=== PATIENT | female | born 1980 | race Asian ===

== ENCOUNTER → 2016-11-04 | Outpatient (CLI) | payer OTHER | LOC: WI 11:47 | PROVIDERS: ATTEND Family Medicine | DX: N63 Unspecified lump in breast (principal) | CPT/HCPCS: 76642; G0204; 77066 ==

== ENCOUNTER → 2016-11-14 | Day surgery (SDC) | payer OTHER ==
[~2016-11-14] MED LIST: LIDOCAINE 2% INJ (20 MG/ML) 20 ML MDV ONE
--- NOTE | 2016-11-17 15:46 | WOMENS IMAGING REPORT ---
EXAM DESCRIPTION: U/S BREAST BX; RIGHT DIG DX MAMMO NO CHG; U/S BREAST BX EACH ADDT'L COMPLETED DATE/TIME: 11/14/2016 12:48 pm; 11/14/2016 11:44 am; 11/14/2016 12:49 pm REASON FOR STUDY: N63, BREAST LUMP; N63 S/P RIGHT US BX FOR CLIP PLACEMENT; N63 SECOND BIOPSY SITE N 63 UNSPECIFIED LUMP IN BREAST COMPARISON: None. TECHNIQUE: The procedure was discussed with the patient and the patient agreed to proceed. RIGHT BREAST: The patient was scanned and the area of interest in the 10-11 o'clock position of the right breast wa s localized. This correlates with the area of concern on prior imaging studies. This area was target ed for ultrasound-guided core biopsy. After sterile skin prep and 10 cc local lidocaine 1% for skin and deep tissue anesthesia, a 14 gauge coaxial core biopsy needle was used to obtain several cores of tissue from the lesion. Under ultraso und guidance, a ribbon clip was placed in the areas sampled. There were no immediate post-procedure complications. RIGHT AXILLA: A separate biopsy was performed of the abnormal lymph node in the right axilla. The patient was scan muna and the area of interest in the right axilla was localized. This correlates with the area of con cern on prior imaging studies. This area was targeted for ultrasound-guided core biopsy. After sterile skin prep and 10 cc local lidocaine 1% for skin and deep tissue anesthesia, a 14 gauge coaxial core biopsy needle was used to obtain several cores of tissue from the lesion. Under ultraso und guidance, a marker clip was placed in the areas sampled. There were no immediate post-procedure complications. MAMMOGRAM: Post-procedure two view mammogram was acquired in the digital mammogram suite. The clips w ere in the expected location. No significant hematoma. Pathology yields a diagnosis of invasive ductal carcinoma in the right breast. 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 Pathology is concordant. LIMITATIONS: None. FINDINGS: Ultrasound guided breast biopsy as described above. POST PROCEDURE MAMMOGRAMS FOR MARKER PLACEMENT: Yes IMPRESSION: ULTRASOUND-GUIDED CORE BIOPSY OF THE RIGHT BREAST YIELDS A DIAGNOSIS OF INVASIVE DUCTAL CARCINOMA IN THE RIGHT BREAST AND METASTATIC CARCINOMA IN THE RIGHT AXILLARY NECK NODE. COMMENT: COMMUNICATION: Attempts were made to contact the patient the or unsuccessful. The patient' s provider has been notified of the findings. The provider will discuss the findings with the patient . Patient medication list reviewed: Yes- Quality ID# [id number]:Eligible professional attests to documenting i n the medical record they obtained, updated, or reviewed the patient's current medications. TECHNICAL DOCUMENTATION: JOB ID: [id number] [employer]- All Rights Reserved
== END ==
LOC: WI 14:25
PROVIDERS: ATTEND Family Medicine
PROC: 0HBT3ZX Excision of Right Breast, Percutaneous Approach, Diagnostic (ICD-10-PCS; principal; 2016-11-14)
DX: C50.911 Malignant neoplasm of unspecified site of right female breast (principal); C77.3 Secondary and unspecified malignant neoplasm of axilla and upper limb lymph nodes
CPT/HCPCS: 88342 ×2; 88341 ×2; 88305 ×2; 19083; 19084; J3490

== ENCOUNTER → 2016-12-01 | Outpatient (CLI) | payer OTHER ==
--- NOTE | 2016-12-01 13:44 | RADIOLOGY REPORT (SQ) ---
EXAM DESCRIPTION: NM MUGA REST COMPLETED DATE/TIME: 12/01/2016 1:26 pm REASON FOR STUDY: BREAST CA (C50.411), ENCOUNTER FOR SCREENING FOR CARDIOVASCULAR DISO(Z13.6) C50.41 1 MALIG NEOPLM OF UPPER-OUTER QUADRANT OF RIGHT FEMALE Z13.6 ENCOUNTER FOR SCREENING FOR CARDIOVASC ULAR DISORDERS COMPARISON: None. RADIONUCLIDE AND DOSE: 25 mCi technetium pertechnetate. The route of agent administration: Intravenous TECHNIQUE: Following administration of the radionuclide, gated images of the heart are obtained in t hree projections. Left ventricular functional analysis performed. LIMITATIONS: None. FINDINGS: LEFT VENTRICULAR FUNCTION: EJECTION FRACTION: 78%. END-DIASTOLIC VOLUME: 80 mL. END-SYSTOLIC VOLUME: 12 mL. WALL MOTION: No focal wall motion abnormalities. OTHER: No other significant finding. IMPRESSION: NORMAL CARDIAC MUGA STUDY. NORMAL LEFT VENTRICULAR FUNCTION WITH VALUES ABOVE. TECHNICAL DOCUMENTATION: JOB ID: [id number] [employer]- All Rights Reserved
== END ==
LOC: RAD 10:29
PROVIDERS: ATTEND Internal Medicine
DX: Z13.6 Encounter for screening for cardiovascular disorders (principal); Z08 Encounter for follow-up examination after completed treatment for malignant neoplasm; C50.411 Malignant neoplasm of upper-outer quadrant of right female breast
CPT/HCPCS: 78472; A9560; Q9969

== ENCOUNTER → 2016-12-02 | Outpatient (CLI) | payer OTHER ==
--- NOTE | 2016-12-02 09:46 | RADIOLOGY REPORT (SQ) ---
EXAM DESCRIPTION: CT ABD/PELVIS WITH IV ORAL; CT CHEST WITH COMPLETED DATE/TIME: 12/02/2016 8:48 am REASON FOR STUDY: BREAST CA (C503.411); BREAST CA (C50.411) C50.411 MALIG NEOPLM OF UPPER-OUTER MIESHA DRANT OF RIGHT FEMALE COMPARISON: Ultrasound-guided right breast biopsy 11/14/2016 CONTRAST TYPE AND DOSE: 71mL Isovue 370- low osmolar. RENAL FUNCTION: None required. The patient is less than 50 years old. TECHNIQUE: CT scan of the chest performed using helical scanning technique with dynamic intravenous contrast injection. Images reviewed with lung, soft tissue and bone windows. Reconstructed coronal a nd sagittal MPR images reviewed. All images stored on PACS. CT scan of the abdomen and pelvis performed with intravenous and with oral contrastusing helical scan philip technique with dynamic intravenous contrast injection. Images reviewed with lung, soft tissue a nd bone windows. Reconstructed coronal and sagittal MPR images reviewed. Delayed images for evaluat ion of the urinary system also acquired and evaluated. All images stored on PACS. All CT scanners at this facility use dose modulation, iterative reconstruction, and/or weight based d osing when appropriate to reduce radiation dose to as low as reasonably achievable (ALARA). [facility]: Dose Right [facility]: CareDose [facility]: Dose Right [facility]: Teradose 4D [facility]: [email or web address] RADIATION DOSE: 16.51; 4.50 mGy. LIMITATIONS: None. FINDINGS: CHEST: LUNGS AND PLEURA: No opacities, significant nodules, masses. No pneumothorax. No effusions. There i s a less than 4 mm pleural-based nodule in the right middle lobe on axial image 62 of doubtful clinic al significance. HILAR AND MEDIASTINAL STRUCTURES: No identified masses or abnormal nodes. HEART AND VASCULAR STRUCTURES: No aneurysm or dissection. No central pulmonary emboli. No pericardi al effusion. HARDWARE: None. THYROID AND OTHER SOFT TISSUES: Thyroid unremarkable. A 2.8 x 2.2 cm right lateral breast mass is present with biopsy clip on axial image 24. A 2.5 x 1.6 cm right axillary lymph node is present with biopsy clip axial image 18. BONES: No significant finding. OTHER: No other significant finding. ABDOMEN AND PELVIS: LIVER: Normal size. No masses or dilated ducts. SPLEEN: Normal size. No focal lesions. PANCREAS: No masses. No significant calcifications. No adjacent inflammation or peripancreatic fluid collections. Pancreatic duct not dilated. GALLBLADDER: No identified stones by CT criteria. No inflammatory changes to suggest cholecystitis. ADRENAL GLANDS: No significant masses or asymmetry. RIGHT KIDNEY AND URETER: No solid masses. No significant calcification. No hydronephrosis or hydroure ter. LEFT KIDNEY AND URETER: No solid masses. No significant calcification. No hydronephrosis or hydrouret er. AORTA AND VESSELS: No aneurysm. No dissection. Renal arteries, SMA, celiac without stenosis. RETROPERITONEUM: No retroperitoneal adenopathy, hemorrhage or masses. BOWEL AND PERITONEAL CAVITY: No masses or inflammatory changes. No free fluid or peritoneal masses. APPENDIX: Normal. ABDOMINAL WALL: No masses. No hernias. BONES: No significant or acute findings. OTHER: No other significant finding. IMPRESSION: Right lateral breast mass and right axillary lymph node previously biopsied with clips p resent. No CT evidence of metastatic disease to the chest abdomen or pelvis given history of breast cancer NORMAL CT OF THE ABDOMEN AND PELVIS WITH ORAL AND INTRAVENOUS CONTRAST. TECHNICAL DOCUMENTATION: JOB ID: [id number] Quality ID # [id number]: Final reports with documentation of one or more dose reduction techniques (e.g., Au tomated exposure control, adjustment of the mA and/or kV according to patient size, use of iterative reconstruction technique) 2010 [employer]- All Rights Reserved
== END ==
LOC: RAD 08:04
PROVIDERS: ATTEND Internal Medicine
DX: C50.411 Malignant neoplasm of upper-outer quadrant of right female breast (principal)
CPT/HCPCS: 71260; 74177

== ENCOUNTER 2016-12-04 06:30 | Day surgery (SDC) | payer OTHER ==
[~2016-12-04 06:30] MED LIST changes: +ACETAMINOPHEN 325 MG TABLET PO PRN; +CEFAZOLIN 1 GM/D5W RTU 1 GM/50 ML RTUPB IV PRN; -LIDOCAINE 2% INJ (20 MG/ML) 20 ML MDV ONE
[2016-12-04 07:07] LABS: HEMATOCRIT 40.3 % (36.0-47.0); HEMOGLOBIN 13.5 g/dL (12.0-15.5); HGB HCT DIFFERENCE 0.2; MEAN CORPUSCULAR HEMOGLOBIN 28.6 pg (27.0-33.4); MEAN CORPUSCULAR HGB CONC 33.4 g/dL (32.0-36.0); MEAN CORPUSCULAR VOLUME 86 fl (80-97); RED BLOOD COUNT 4.72 10^6/uL (3.72-5.28); RED CELL DISTRIBUTION WIDTH 13.4 % (11.5-14.0); WHITE BLOOD COUNT 7.2 10^3/uL (4.0-10.5)
[2016-12-04] MEDS ORDERED: LIDOCAINE 0.5% INJ-PF (5 MG/ML) 50 ML SDV ONE (08:05)
[2016-12-04] MEDS ORDERED: FENTANYL CITRATE INJ/PF 100 MCG/2 ML AMPUL ONE (08:09)
[2016-12-04] MEDS ORDERED: MIDAZOLAM 2 MG/2 ML INJ ONE ×2 (08:09→09:16)
[2016-12-04] MEDS ORDERED: BACITRACIN INJ 50,000 UNIT VIAL INJ PRN (08:45)
--- NOTE | 2016-12-04 09:45 | PDOC DISCHARGE SUMMARY ---
Discharge Summary (SDC) - Discharge Final Diagnosis: [place] breast cancer Date of Surgery: 12/04/16 Discharge Date: 12/04/16 Condition: Good Treatment or Instructions: [facility] [address] [place] [id number] Discharge Instructions: Neck Surgery 1. General Information: a. Do not drive a car or operate machinery for 1-2 weeks or as long as taking narcotics for pain. b. Do not consume alcohol, tranquilizers, sleeping medications or any non- prescribed medications for 24 hours unless approved by your doctor or as long as taking pain medication. c. Do not make important decisions or sign any important papers for the first 24 hours after surgery. d. When discharged home the same day of surgery have a responsible person with you for the first night. 2. Activity Restrictions: 2 weeks. a. Avoid heavy lifting > 10 lbs, straining, sports, mowing lawn, shoveling snow, vacuum cleaning and bending over a lot. Limit bending to taking a shower and getting dressed. Sleep with head elevated (2 pillows). b. Walking is important to avoid blood clots in the legs and deep breathing can prevent pneumonia. c. It is fine to go up and down steps, ride in a car, and use a stationary bike with low resistance. 3. Treatment: a. The dressing can be removed the day after surgery and to shower then daily is fine, but you should not bathe in the tub or go swimming for 2 weeks. The paper strips (steri-strips) on the skin will fall off and can get wet with a shower, just pat them dry. The sutures dissolve and the strips will be removed in the office on your follow up visit if they have not fallen off by then. May shower 24 hours after surgery; if your incision was glued you may wash your neck and expect glue to fall off in about 2 weeks. b. Do not use oils, powders or lotion on your incision until after the first postoperative visit. Then you may begin to apply daily to the incision a cream of your choice (Vitamin E, cocoa butter, scar creams) to help soften the scar. c. If you are fair skinned it would be jay to use sunscreen on the scar for the first 6 months or keep it covered to avoid tanning pigment deposits being trapped in the scar creating a dark line instead of a pink scar. 4. Medications: a. You may take narcotic prescription tablets for pain if needed, one or two every 4 hours (Tylenol #3) b. Stop the narcotic when able since you cannot take and drive and they may cause constipation. You may switch to plain Tylenol, Advil or Aleve as you transition from the narcotic. Many adults find good pain relief with Ibuprofen 600-800 mg three times a day with meals to work well to avoid narcotic use. High doses of Ibuprofen should only be used for short courses since it can cause indigestion, ulcer bleeding in the stomach and harm kidney function. c. You should resume all normal medications unless a change is specified by your doctors. d. a. If going home same day of surgery you should begin with clear liquids and if do well then advance to a normal diet with foods low in fat and protein. Small portion sizes may be jay the first night to lessen risk of vomiting. b. When discharged after a hospital stay you may resume a normal diet. 6. Notify Physician If: a. Worsening of pain or swelling in neck, persistent bleeding at the operative site, nausea and vomiting, fever above 101, unable to urinate and bladder pressure after 8-12 hours, increased redness, drainage, or foul smelling discharge from the incision. b. If you have difficulty breathing or chest pain, call an ambulance and/or go to the Emergency Room. 7. Follow Up Care: a. Schedule a follow up appointment with your doctor for 2 weeks. In the event of any postoperative problems or questions or you may call the office during business hours or the On-Call physician evenings and weekends at [facility]. [facility] 8. I understand the instructions for my postoperative care as described above and a copy has been given to me. Patient/Significant Other Witness Date Discharge Diet: Regular Discharge Activity: Activity As Tolerated Home Care Assistance: None Needed Report the Following to Your Physician Immediately: Shortness of Breath, Increase in Pain, Fever over 101 Degrees
[2016-12-04 11:22] VITALS: BP 113/72
--- NOTE | 2016-12-04 11:38 | OPERATIVE REPORT E ---
Operative Report NAME: LOLA LOWE : 1980 AGE: 35Y DATE OF SURGERY: 12/04/2016 ROOM: PREOPERATIVE DIAGNOSIS: Triple-negative breast carcinoma, locally advanced. POSTOPERATIVE DIAGNOSIS: Triple-negative breast carcinoma, locally advanced. PROCEDURES: 1. Ultrasound-directed venous access, left internal jugular vein. 2. Insertion of single lumen Infusaport catheter, left subclavian position. 3. Interpretation of intraoperative fluoroscopy. 4. Limited superior vena cavagram. SURGEON: RAYA REINOSO M.D. ANESTHESIA: Conscious sedation and local 1% lidocaine without epinephrine. COMPLICATIONS: None. ESTIMATED BLOOD LOSS: 5 mL. DRAINS: None. TISSUE REMOVED: None. SUMMARY OF PROCEDURE: The patient was taken from the ambulatory area to the cardiac geoscience laboratory technician where she was placed in a supine position, arms tucked and left neck and chest wall prepped. Surgical plan and surgical timeout were conducted. Focused ultrasound of the left neck confirmed patent, compressible left internal jugular vein suitable for cannulation. The skin was anesthetized with 1% lidocaine plain. Using microneedle and a wire, the left internal jugular vein was accessed. A small microintroducer cannula was placed over the wire and then using a Glidewire, we were able to eventually advance the wire through the innominate vein down the superior vena cava. A suitable site for placement of the port was chosen in the left subclavian position. The skin was anesthetized with 1% lidocaine plain. A 2 cm incision was made with the knife, #10, and a subcutaneous pocket developed large enough to accommodate a single-chamber port. The Infusaport catheter itself was trimmed to the appropriate length, tunneled between the 2 wounds, attached to the port with a plastic ring and the port tucked into the subclavian pocket. Under fluoroscopic guidance, the catheter was threaded into the left internal jugular vein using the dilator strip-away sheath that had been advanced over the Glidewire. The strip-away sheath was removed, leaving the catheter in satisfactory position, with the tip just in the superior vena cava and no evidence of catheter kinkage. We aspirated and then flushed the catheter satisfactorily. We then shot a single rapid sequence limited superior vena cavagram with full strength Isovue, and that showed no evidence of extravasation and a patent superior vena cava. The catheter was flushed with saline. The wound was closed with 3-0 Vicryl, benzoin and Steri-Strips. At the conclusion, a chest x-ray was obtained. The patient tolerated the procedure well and patient was taken to the ambulatory area in stable condition. DICTATING PHYSICIAN: RAYA REINOSO M.D. [id number] PHY#: [id number] ID: [id number] JOB#: [id number] ACCT: [id number] cc:RAYA REINOSO M.D. >
--- NOTE | 2016-12-04 14:35 | RADIOLOGY REPORT (SQ) ---
EXAM DESCRIPTION: PORTACATH INSERTION COMPLETED DATE/TIME: 12/04/2016 11:46 am REASON FOR STUDY: C50.411 C50.411 MALIG NEOPLM OF UPPER-OUTER QUADRANT OF RIGHT FEMALE COMPARISON: None. FLUOROSCOPY TIME: 1.2 minutes 1 images saved to PACS. TECHNIQUE: Intra-operative images acquired during surgical procedure to evaluate progress. NUMBER OF IMAGES: 1 LIMITATIONS: None. FINDINGS: Central line tip overlies SVC from left approach. IMPRESSION: IMAGE(S) OBTAINED DURING PROCEDURE. COMMENT: Quality ID [id number]: Final reports for procedures using fluoroscopy that document radiation exp osure indices, or exposure time and number of fluorographic images (if radiation exposure indices are not available) Please consult full operative report of the attending physician for description of the procedure. TECHNICAL DOCUMENTATION: JOB ID: [id number] [employer] All Rights Reserved
== END 2016-12-04 10:55 | disposition home or self-care (01) ==
LOC: CCL 06:30
PROVIDERS: ATTEND Surgery
PROC: 05H633Z Insertion of Infusion Device into Left Subclavian Vein, Percutaneous Approach (ICD-10-PCS; principal; 2016-12-04)
DX: C50.411 Malignant neoplasm of upper-outer quadrant of right female breast (principal); C77.3 Secondary and unspecified malignant neoplasm of axilla and upper limb lymph nodes
CPT/HCPCS: 36415; 85027; 81025; 36561; 76937; 77001; C1788; C1752; C1769 ×2; Q9967; J2250; J3490 ×2; J0690; J3010; J1644

== ENCOUNTER → 2016-12-09 | Outpatient (CLI) | payer OTHER ==
--- NOTE | 2016-12-09 15:48 | RADIOLOGY REPORT (SQ) ---
EXAM DESCRIPTION: NM WHOLE BODY BONE SCAN COMPLETED DATE/TIME: 12/09/2016 3:15 pm REASON FOR STUDY: BREAST CA C50.411 MALIG NEOPLM OF UPPER-OUTER QUADRANT OF RIGHT FEMALE COMPARISON: No available imaging studies for comparison. RADIONUCLIDE AND DOSE: 21.2 millicuries Tc99m MDP. The route of agent administration: Intravenous. ADDITIONAL DRUGS AND DOSES: None. TECHNIQUE: Routine delayed images at 3 hour post radionuclide injection acquired of the bony skeleto n including anterior and posterior whole-body projections and additional focused images as needed. LIMITATIONS: None. FINDINGS: BONES: Normal visualization without areas of photopenia or increased bony uptake of radiop harmaceutical. KIDNEYS: Symmetric excretion without obstruction. OTHER: No other significant finding. IMPRESSION: NORMAL BONE SCAN. COMMENT: PQRS [id number]: Current bone scan is compared with any available plain radiographs, prior bone scans, and CT/MRI. TECHNICAL DOCUMENTATION: JOB ID: [id number] [employer]- All Rights Reserved
== END ==
LOC: RAD 10:21
PROVIDERS: ATTEND Internal Medicine
DX: C50.411 Malignant neoplasm of upper-outer quadrant of right female breast (principal)
CPT/HCPCS: 78306; A9561; Q9969